=== PATIENT | female | born 1990 | race Caucasian/White ===

== ENCOUNTER 2016-05-12 06:54 | Emergency (ER) | payer BC ==
[~2016-05-12] VITALS: Ht 162.6 cm; Wt 70.1 kg
[~2016-05-12 06:54] MED LIST: AGMUNK; ALBUAER2 INH; AZITTAB PO; CMBIN INH
[2016-05-12 06:59] VITALS: TEMP 36.8; Ht 162.6 cm; Wt 70.1 kg
[2016-05-12] MEDS ORDERED: PROMETHAZINE HCL INJ 25 MG/ML 1 ML VIAL IM STA (07:14)
[2016-05-12] MEDS ORDERED: [UNRECOGNIZED DRUG - CODE] PO (07:24)
[2016-05-12 07:27] VITALS: BP 124/92
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
[2016-05-12 07:48] VITALS: PULSE 68; O2SAT 98
== END 2016-05-12 07:50 | disposition home or self-care (01) ==
LOC: C.EDB 06:55 → C.EDA 07:50
DX: F41.9 Anxiety disorder, unspecified (principal); R11.0 Nausea; Z79.899 Other long term (current) drug therapy

== ENCOUNTER 2016-06-08 22:04 | Emergency (ER) | payer BC ==
[~2016-06-08] VITALS: Ht 160 cm; Wt 67.6 kg
[~2016-06-08 22:04] MED LIST changes: -AGMUNK; -ALBUAER2 INH; -AZITTAB PO; -CMBIN INH; +[UNRECOGNIZED DRUG - CODE] PO
[2016-06-08 22:10] VITALS: TEMP 36.5; Ht 160 cm; Wt 67.6 kg
[2016-06-08] MEDS ORDERED: PROMETHAZINE HCL INJ 25 MG/ML 1 ML VIAL IM STA (22:46)
[2016-06-08] MEDS ORDERED: PHENERGAN 25MG HOMEPACK PO ONE (23:00)
[2016-06-08 23:13] VITALS: BP 126/74; PULSE 62; O2SAT 100
--- NOTE | 2016-06-09 02:51 | EMERGENCY ROOM VISIT NOTE ---
History First contact with patient: 22:37 Chief Complaint: ANXIETY Stated Complaint: ANXIETY, NAUSEA History of Present Illness The patient is a 25 year old female who presents to the Emergency Room with complaints of nausea and anxiety for the past day. Patient states she normally needs Phenergan to help out with her nausea and anxiety. She is currently out of this. Patient denies chest pain, dyspnea, suicidal or homicidal ideations, delusions, vomiting, diarrhea, abdominal pain, fever, chills or any other medical complaints. Patient is in town visiting from [place]. Review of Systems See HPI for pertinent positives & negatives. A total of 10 systems reviewed and were otherwise negative. Past Medical/Surgical History Anxiety Social History Smoking Status: Never Smoker Alcohol Use: occasionally Drug Use: none Marital Status: single Housing Status: lives with roommate Occupation Status: other Current/Historical Medications Scheduled Propranolol HCl (Propranolol HCl), 2.5 ML PO TID Allergies Coded Allergies: No Known Allergies (Unverified , 05/12/16) Physical Exam Vital Signs Date Time Temp Pulse Resp B/P Pulse Ox O2 Delivery O2 Flow Rate FiO2 06/08/16 23:13 62 20 126/74 100 06/08/16 22:10 36.5 62 20 138/87 100 Room Air Pain Rating (0-10): 0 Physical Exam VITALS: Vitals are noted on the nurse's note and reviewed by myself. Vital signs stable. GENERAL: Pleasant female cooperative, in no acute distress, nondiaphoretic, well -developed well-nourished. SKIN: The skin was without rashes, erythema, edema, or bruising. There is no tenting of the skin. Capillary reflex less than 2 seconds. HEAD: Normocephalic atraumatic. EARS: External auditory canals clear, tympanic membranes pearly harley without erythema or effusion bilaterally. EYES: Pupils equal round and reactive to light and accommodation. Conjunctivae without injection, sclerae without icterus. Extraocular movements intact. NOSE: Patent, turbinates without inflammation or discharge. MOUTH: Mucous membranes moist. Pharynx without erythema or exudate. Uvula midline. Airway patent. Tongue does not deviate. NECK: Supple without nuchal rigidity. No lymphadenopathy. No thyromegaly. Cervical spine is nontender. No JVD. HEART: Regular rate and rhythm without murmurs gallops or rubs. LUNGS: Clear to auscultation bilaterally without wheezes, rales or rhonchi. No dullness to percussion. No retractions or accessory muscle use. ABDOMEN: Positive bowel sounds x 4. Normal tympanic percussion. Soft, nontender, without masses or organomegaly. Mckeon sign negative. No guarding or rebound tenderness. MUSCULOSKELETAL: No muscle atrophy, erythema, or edema noted. NEURO: Patient was alert and oriented to person place and time. Normal sensation to light and sharp touch. No focal neurological deficits. Psych: Cooperative Medical Decision & Procedures Medications Administered Medications (Trade) Dose Ordered Sig/Konstantin Route Start Time Stop Time Status Last Admin Dose Admin Promethazine HCl (Phenergan Inj) 25 mg NOW STAT IM 06/08/16 22:46 06/08/16 22:47 DC 06/08/16 23:02 25 MG Promethazine HCl (Phenergan 25MG Home Pack) 1 homepack UD ONCE PO 06/08/16 23:00 06/08/16 23:01 DC 06/08/16 23:02 1 HOMEPACK ED Course Prior records/ancillary studies reviewed and summarized above. Nursing notes reviewed. The patient's history was concerning for anxiety and nausea. Differential diagnosis: Etiologies such as anxiety, metabolic, infection, hypo/hyperglycemia, electrolyte abnormalities, cardiac sources, toxicologic, neurologic, as well as others were entertained. Physical examination: As above. ER treatment provided: Phenergan On reassessment the patient felt better. Diagnostics interpretation by me: Deferred Exam and history seem consistent with anxiety with nausea. Patient felt better after the Phenergan and requested to leave. I felt this is reasonable. She is advised follow-up family care in a few days or here in the ER sooner for exactly , chest pain, vomiting, suicidal or homicidal ideations, worsening signs or symptoms or as needed. Patient was neurovascularly and neurologically intact. She is well-appearing. She had no suicidal or homicidal ideations. By the evaluation outlined above emergent etiologies such as infection, electrolyte abnormalities, cardiac sources, intracerebral event, toxologic, neurologic, abnormalities blood glucose, metabolic, as well as others were deemed relatively unlikely. The pt informed about the findings as listed above. All questions were answered and pleased with the treatment. Return instructions were outlined and the patient was discharged in stable condition. Outpatient prescription management: Phenergan Referral: The patient was referred back to primary care physician for follow-up in 2 to 3 days for a recheck of the current condition. Medical Decision As above Impression Primary Impression: Nausea Additional Impression: Acute anxiety Departure Information Dispostion Home / Self-Care Condition GOOD Forms HOME CARE DOCUMENTATION FORM, IMPORTANT VISIT INFORMATION Patient Instructions [facility] Additional Instructions DO NOT drive, drink alcohol, operate machinery, or perform dangerous activities today. You were given medications in the ER that can affect your ability to safely function or operate a vehicle. Phenergan(promethazine) tablets 25mg: Take one every six hours as needed for nausea. Avoid alcohol, operating machinery or dangerous equipment, working on ladders or roofs, DRIVING, or situations where being under the influence may be dangerous. Ibuprofen(Motrin, Advil) may be used for fever or pain. Use 600mg every six hours as needed. Take with food. Avoid using more than 2400mg in a 24 hour period. Do not use 2400mg per day for more than three consecutive days without physician direction. Prolonged inappropriate use can lead to stomach upset or ulcers. (AND/OR) Acetaminophen(Tylenol) may be used for fever or pain. Use 1000mg every six hours as needed. Avoid using more than 3000mg in a 24 hour period. Rest and drink plenty of fluids as tolerated. Slow sips of water or sports drinks are recommended instead of large amounts all at once. Continue current medications. Return to the ER for persistent anxiety, vomiting, fevers, abdominal pain, chest pains, difficulty breathing, black or bloody stools, worsening of your condition, or as needed. Follow up with your primary physician in 2-3 days for a recheck of your current condition. Problem Qualifiers
[2016-06-09] MEDS ORDERED: ONDA4TAB10 SL (18:04)
== END 2016-06-08 23:16 | disposition home or self-care (01) ==
LOC: C.EDB 22:07 → C.EDA 23:16
DX: F41.9 Anxiety disorder, unspecified (principal); R11.0 Nausea

== ENCOUNTER 2016-06-09 17:43 | Emergency (ER) | payer BC ==
[~2016-06-09] VITALS: Ht 157.5 cm; Wt 66.8 kg
[2016-06-09 17:44] VITALS: TEMP 36.6; Ht 157.5 cm; Wt 66.8 kg
[2016-06-09] MEDS ORDERED: PROMETHAZINE HCL INJ 25 MG/ML 1 ML VIAL IM STA (18:00)
[2016-06-09] MEDS ORDERED: ONDA4TAB10 SL (18:04)
--- NOTE | 2016-06-09 18:07 | EMERGENCY ROOM VISIT NOTE ---
History First contact with patient: 17:52 Chief Complaint: NAUSEA Stated Complaint: NAUSEA Nursing Triage Summary: pt c/o nausea since march "because of anxiety". pt was seen here last night and prescribed promethazine to take but lost prescription. pt verbalizes she called in to see if prescription could be re-printed but was told to check back into the ed. History of Present Illness The patient is a 25 year old female who presents to the Emergency Room with complaints of nausea secondary to her anxiety. The patient was seen here last night for the same thing. She was given a Phenergan injection. The patient states that she was given a prescription for Phenergan but she lost it. Today earlier this morning she felt nauseated and took some Zofran. She states it did help. The patient denies any abdominal pain, change in bowel habits, urinary symptoms or fever. Review of Systems 6 system review was performed and was negative unless stated otherwise in history of present illness. Past Medical/Surgical History Anxiety, nausea Social History Smoking Status: Never Smoker Alcohol Use: occasionally Drug Use: none Marital Status: single Housing Status: lives with roommate Occupation Status: other Current/Historical Medications Scheduled Propranolol HCl (Propranolol HCl), 2.5 ML PO TID Allergies Coded Allergies: No Known Allergies (Unverified , 05/12/16) Physical Exam Vital Signs Date Time Temp Pulse Resp B/P Pulse Ox O2 Delivery O2 Flow Rate FiO2 06/09/16 17:44 36.6 60 18 116/73 99 Room Air Physical Exam GENERAL: 25-year-old white female appears in no acute distress. MENTAL Status: Patient is alert and oriented 3. The patient is very anxious. MOUTH: Mucosa is moist NECK: Supple, no lymphadenopathy noted. No carotid bruits noted. LUNGS: Clear auscultation without wheezes rales or rhonchi. CARDIAC: Regular rate and rhythm without murmur. Pulses is full and equal throughout. BACK: No CVA tenderness noted. ABDOMEN: Positive bowel sounds all 4 quadrants. Soft, nontender to palpation without organomegaly or masses. EXTREMITIES: No cyanosis or edema noted. Medical Decision & Procedures ED Course The patient was evaluated. The patient was given Phenergan 25 mg IM for her nausea. I discussed with the patient giving her a prescription for Zofran rather than Phenergan since she has to attend class and that may make her drowsy. The patient is in agreement. The patient was given a Zofran home pack since the pharmacy is now close. The patient was discharged home in stable condition. Medical Decision The patient presented with her chronic nausea due to her anxiety therefore no additional diagnostic imaging or testing was performed. Impression Primary Impression: Nausea Departure Information Dispostion Home / Self-Care Condition GOOD Prescriptions Ondasetron Odt (ZOFRAN ODT) 4 Mg Tab 4 MG SL Q6H for Nausea, #20 TAB Prov: Kiim Lam, BINA 06/09/16 Referrals No Doctor, Assigned (PCP) Forms HOME CARE DOCUMENTATION FORM, IMPORTANT VISIT INFORMATION Patient Instructions [facility] Additional Instructions Take Zofran as needed for nausea. Any uncontrolled vomiting or diarrhea, return to ER.
[2016-06-09] MEDS ORDERED: ONDANSETRON HOME PACK 4MG OD TAB PO ONE (18:15)
[2016-06-09 18:26] VITALS: BP 111/70; PULSE 78; O2SAT 98
== END 2016-06-09 18:27 | disposition home or self-care (01) ==
LOC: C.EDB 17:44 → C.EDD 18:27
DX: R11.0 Nausea (principal); F41.9 Anxiety disorder, unspecified; Z79.899 Other long term (current) drug therapy

== ENCOUNTER 2016-06-10 00:17 | Emergency (ER) | payer BC ==
[~2016-06-10] VITALS: Ht 157.5 cm; Wt 66.9 kg
[~2016-06-10 00:17] MED LIST changes: +ONDA4TAB10 SL
[2016-06-10 00:21] VITALS: TEMP 36.3; Ht 157.5 cm; Wt 66.9 kg
[2016-06-10] MEDS ORDERED: ALPRAZOLAM 0.5 MG TAB PO STA (00:39)
[2016-06-10] MEDS ORDERED: PROMETHAZINE HCL INJ 25 MG/ML 1 ML VIAL IM STA (01:14)
[2016-06-10 01:39] VITALS: BP 137/81; PULSE 65; O2SAT 98
--- NOTE | 2016-06-10 02:53 | EMERGENCY ROOM VISIT NOTE ---
History First contact with patient: 00:26 Chief Complaint: NAUSEA Stated Complaint: NAUSEA Nursing Triage Summary: pt c/o nausea for past 4-5 hours, took zofran around 2129 with no relief, states she was here earlier for same thing History of Present Illness The patient is a 25 year old female who presents to the Emergency Room with complaints of feeling nauseous due to her anxiety. Patient did not try her Xanax. She states the Zofran did not help. She lost her prescription for the Phenergan. Patient states returns tomorrow to [place]. She is requesting another shot of Phenergan for her nausea and anxiety. Patient denies suicidal or homicidal ideations, chest pain, dyspnea, delusions, hallucinations, fever, chills, vomiting or diarrhea. Patient has a therapist and a psychiatrist back home. Review of Systems See HPI for pertinent positives & negatives. A total of 10 systems reviewed and were otherwise negative. Past Medical/Surgical History Anxiety Social History Smoking Status: Never Smoker Smokeless Tobacco Use: No Alcohol Use: occasionally Drug Use: none Marital Status: single Housing Status: lives with roommate Occupation Status: other Current/Historical Medications Scheduled Ondasetron Odt (Zofran Odt), 4 MG SL Q6H Propranolol HCl (Propranolol HCl), 2.5 ML PO TID Allergies Coded Allergies: No Known Allergies (Unverified , 05/12/16) Physical Exam Vital Signs Date Time Temp Pulse Resp B/P Pulse Ox O2 Delivery O2 Flow Rate FiO2 06/10/16 01:39 65 16 137/81 98 06/10/16 00:21 36.3 61 18 142/88 96 Room Air Pain Rating (0-10): 0 Physical Exam VITALS: Vitals are noted on the nurse's note and reviewed by myself. Vital signs stable. GENERAL: Pleasant anxious-appearing female, in no acute distress, nondiaphoretic , well-developed well-nourished. SKIN: The skin was without rashes, erythema, edema, or bruising. There is no tenting of the skin. Capillary reflex less than 2 seconds. HEAD: Normocephalic atraumatic. EARS: External auditory canals clear, tympanic membranes pearly harley without erythema or effusion bilaterally. EYES: Pupils equal round and reactive to light and accommodation. Conjunctivae without injection, sclerae without icterus. NOSE: Patent, turbinates without inflammation or discharge. MOUTH: Mucous membranes moist. Pharynx without erythema or exudate. Uvula midline. Airway patent. Tongue does not deviate. NECK: Supple without nuchal rigidity. No lymphadenopathy. No thyromegaly. Cervical spine is nontender. No JVD. HEART: Regular rate and rhythm without murmurs gallops or rubs. LUNGS: Clear to auscultation bilaterally without wheezes, rales or rhonchi. No dullness to percussion. No retractions or accessory muscle use. ABDOMEN: Positive bowel sounds x 4. Normal tympanic percussion. Soft, nontender, without masses or organomegaly. Mckeon sign negative. No guarding or rebound tenderness. MUSCULOSKELETAL: No muscle atrophy, erythema, or edema noted. NEURO: Patient was alert and oriented to person place and time. Normal sensation to light and sharp touch. No focal neurological deficits. Psych: Pleasant cooperative anxious-appearing Medical Decision & Procedures Medications Administered Medications (Trade) Dose Ordered Sig/Konstantin Route Start Time Stop Time Status Last Admin Dose Admin Alprazolam (Xanax Tab) 0.5 mg NOW STAT PO 06/10/16 00:39 06/10/16 00:40 DC 06/10/16 00:48 0.5 MG Promethazine HCl (Phenergan Inj) 25 mg NOW STAT IM 06/10/16 01:14 06/10/16 01:16 DC 06/10/16 01:27 25 MG ED Course Prior records/ancillary studies reviewed. Triage Nursing notes reviewed. The patient's history was concerning for anxiety Differential diagnosis: Etiologies such as anxiety, mood disorder, infection, hypoglycemia, electrolyte abnormalities, cardiac sources, intracerebral event, toxicologic, neurologic, as well as others were entertained. Physical examination: The physical examination was performed as above and was completely benign. No emergent medical pathologies were noted. ER treatment provided: Xanax, Phenergan On reassessment the patient felt better. Diagnostic interpretation by me: No diagnostic studies were performed based upon the history and physical examination. Consultation: A consultation was placed with mental health. The patient was evaluated by mental health in the emergency department and they felt admission was not warranted. They recommend that the patient follow up with her therapist within the [facility] to [place]. Exam and history seem consistent with anxiety. This is the patient's third visit today so I opted to have pain and help evaluate the patient. Patient was agreeable to this. She was strongly encouraged to see her therapist when she returns tomorrow and to resume taking an anti-anxiety medication. She was advised to try her Xanax as needed but no alcohol or driving on this medication. She is advised to return to the ER mainly for anxiety, suicidal or homicidal ideations, delusions, hallucinations, worsening signs or symptoms or as needed. By the evaluation outlined above emergent etiologies such as infection, hypoglycemia, electrolyte abnormalities, cardiac sources, intracerebral event, toxicologic, neurologic,as well as others were deemed relatively unlikely. It appears the patient is dealing with a psychiatric disturbance. The pt informed about the findings as listed above. All questions were answered and pleased with the treatment. Return instructions were outlined and the patient was discharged in stable condition. Referral: The patient was referred back to their primary care physician and therapist for follow-up in 2 to 3 days for a recheck of the current condition. Medical Decision As above Impression Primary Impression: Acute anxiety Additional Impression: Nausea Departure Information Dispostion Home / Self-Care Condition GOOD Referrals Marquise Glover DO (PCP) Forms HOME CARE DOCUMENTATION FORM, IMPORTANT VISIT INFORMATION Patient Instructions Anxiety Body Response, My [facility] [employer] Additional Instructions Try your Xanax for your anxiety. No alcohol or driving on this medication. Follow up with your therapist and psychiatrist when he returns to [place] this week. Rest. Decrease stress. Try yoga and/or Pilates to decrease your stress and anxiety. Return to ER sooner for anxiety, thoughts of hurting yourself, delusions, hallucinations, worsening signs or symptoms or as needed. Problem Qualifiers
== END 2016-06-10 01:42 | disposition home or self-care (01) ==
LOC: C.EDB 00:18
DX: R41.9 Unspecified symptoms and signs involving cognitive functions and awareness (principal); R11.0 Nausea

== ENCOUNTER 2016-07-08 00:53 | Emergency (ER) | payer BC ==
[~2016-07-08] VITALS: Ht 160 cm; Wt 66.8 kg
[2016-07-08 00:58] VITALS: TEMP 36.4; Ht 160 cm; Wt 66.8 kg
[2016-07-08] MEDS ORDERED: ALPRAZOLAM 0.5 MG TAB PO STA (01:25)
--- NOTE | 2016-07-08 01:25 | EMERGENCY ROOM VISIT NOTE ---
History Report prepared by Allyssa: Pete Jeff Under the Supervision of: Dr. Estrella Mtz D.O. First contact with patient: 01:03 Chief Complaint: ANXIETY Stated Complaint: ANXIETY History of Present Illness The patient is a 25 year old female who presents to the Emergency Room with complaints of improving anxiety that occurred earlier today. The patient has a history of anxiety for which she has been to the ED multiple times. The patient' s father states that her episode of anxiety tonight was alarming, which the patient describes as a panic attack. The patient becomes fixated on the idea that she has "the stomach flu." The patient describes feeling extremely nauseous , and she notes that she has a significant fear of vomiting. She is only minimally nauseous at this time. The patient had one loose bowel movement tonight which may have contributed to the attack. She is also worried because her brother recently had GI symptoms and she is afraid that he was contagious. The patient's anxiety improved tonight after taking 0.5 mg Xanax. She has been taking up to two 0.5 mg Xanax per day. The patient sees a therapist and is undergoing cognitive behavioral therapy. She started Zoloft 25 mg two weeks ago , which has helped. The dose will be increased to 50 mg in two days. Tonight she had chicken noodle soup and salad for dinner which has not caused her any problems. She has been dealing with anxiety since being diagnosed with mono approximately 8 months ago, as per father. 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 She notes that she was going to the ED and urgent care in [place] frequently. She graduated from [employer] yesterday which is also contributing to anxiety. She scratches herself during her panic attacks, which is not intended to do self harm or draw blood. The patient denies fevers, chills , sore throat, or coughing. Source of History: patient Onset: today Position: other (psyche) Quality: other (anxiety) Timing: resolved Modifying Factors (Relieving): other (Xanax) Associated Symptoms: No chills, No cough, No fevers, No sorethroat Review of Systems See HPI for pertinent positives & negatives. A total of 10 systems reviewed and were otherwise negative. Past Medical & Surgical Medical Problems: (1) Anxiety Family History No pertinent family history Social History Smoking Status: Never Smoker Alcohol Use: occasionally Drug Use: none Marital Status: single Housing Status: lives with roommate Current/Historical Medications Scheduled Propranolol HCl (Propranolol HCl), 2.5 ML PO UD Sertraline (Zoloft), 50 MG PO DAILY Scheduled PRN Alprazolam (Xanax), 1 MG PO TID PRN for Anxiety Allergies Coded Allergies: No Known Allergies (Unverified , 07/08/16) Physical Exam Vital Signs Date Time Temp Pulse Resp B/P Pulse Ox O2 Delivery O2 Flow Rate FiO2 07/08/16 02:23 70 18 124/87 100 07/08/16 00:58 36.4 68 18 131/88 99 Room Air Physical Exam HEENT: Head - normocephalic and atraumatic Pupils are equal, round, and reactive to light. Extraocular eye muscles are intact, and sclera are anicteric. Nose - moist nasal mucosa without discharge. Mouth - moist buccal mucosa. Oropharynx is nonerythematous and there is no tonsillar exudate or edema noted. Neck: Supple; no JVD, nuchal rigidity, cervical lymphadenopathy, or auscultated bruits. Heart: Regular rate and rhythm. There is a normal S1 and S2. Lungs: Clear to auscultation bilaterally with no wheezes, rales, or rhonchi. Abdomen: Soft, completely nontender, nondistended, with good bowel sounds. There are no palpable pulsatile masses or hepatosplenomegaly. There is no guarding, rigidity, or rebound noted. Extremities: No evidence of cyanosis, clubbing, or edema. There are easily palpable peripheral pulses. Skin: warm and dry with good turgor and no rashes. Psych: Hyperverbal, extremely anxious, scratching her arms and abdomen during exam. Medical Decision & Procedures Medications Administered Medications (Trade) Dose Ordered Sig/Konstantin Route Start Time Stop Time Status Last Admin Dose Admin Alprazolam (Xanax Tab) 0.5 mg NOW STAT PO 07/08/16 01:25 07/08/16 01:26 DC 07/08/16 01:39 0.5 MG Procedure Medications administered include Xanax PO. ED Course 0110: Past medical records reviewed. The patient was here multiple times in June. The patient was evaluated in room B9. A complete history and physical exam was performed. 0125: Xanax 0.5 mg PO. 0158: The patient is feeling much better. Medical Decision The patient is a 25 year old female who presents to the ED with anxiety. Differential diagnosis includes medication side effect, anxiety, gastritis, food borne illness. This is a 25-year-old female patient who presents to the emergency department with feelings of nausea and anxiety. The patient has had severe anxiety episodes since an episode of mononucleosis. The patient is closely followed by psychiatry. She is fixated on having the GI flu. She is extremely fearful of vomiting. She explained that she would feel much more comfortable 5 exam and her and told her that she does not have the GI flu. She explains that she does feel more relaxed after taking her own Xanax at home. I gave her some additional Xanax here which did help with the anxiety. The patient is currently in the process of escalating her dose of Zoloft. I've asked her to follow up closely with her therapist. Impression Primary Impression: Acute anxiety Scribe Attestation The scribe's documentation has been prepared under my direction and personally reviewed by me in its entirety. I confirm that the note above accurately reflects all work, treatment, procedures, and medical decision making performed by me. Departure Information Dispostion Home / Self-Care Referrals No Doctor, Assigned (PCP) Forms HOME CARE DOCUMENTATION FORM, IMPORTANT VISIT INFORMATION Patient Instructions Anxiety Body Response, Anxiety Disorder, My [facility] Additional Instructions You may continue to increase the zoloft dose and take xanax as directed.
[2016-07-08] MEDS ORDERED: SERT50TA PO (02:07)
[2016-07-08] MEDS ORDERED: ALPR-411 PO (02:07)
[2016-07-08 02:23] VITALS: BP 124/87; PULSE 70; O2SAT 100
== END 2016-07-08 02:24 | disposition home or self-care (01) ==
LOC: C.EDB 00:53
DX: F41.9 Anxiety disorder, unspecified (principal)

== ENCOUNTER 2016-07-19 22:57 | Emergency (ER) | payer BC ==
[~2016-07-19] VITALS: Ht 160 cm; Wt 67.8 kg
[~2016-07-19 22:57] MED LIST changes: +ALPR-411 PO; -ONDA4TAB10 SL; +SERT50TA PO
[2016-07-19 23:00] VITALS: BP 122/64; PULSE 64; TEMP 36.8; O2SAT 97; Ht 160 cm; Wt 67.8 kg
--- NOTE | 2016-07-19 23:16 | EMERGENCY ROOM VISIT NOTE ---
History Report prepared by Allyssa: Pete Jeff Under the Supervision of: Dr. Stu Morgan D.O. First contact with patient: 23:04 Chief Complaint: ANXIETY Stated Complaint: ANXIETY,PANIC History of Present Illness The patient is a 25 year old female who presents to the Emergency Room with complaints of persistent anxiety that started earlier tonight. The patient has a history of anxiety for which she takes Zoloft and Xanax. She started Zoloft three weeks ago, and her dose was increased to 50 mg three days ago. The patient 's current episode of anxiety was triggered by family-related stress. The patient's family notes that earlier she was screaming and kicking things around the house. She has otherwise been doing better lately since starting the Zoloft. She notes that she no longer has been receiving Phenergan shots. Her anxiety is typically related to being afraid of vomiting and "having the stomach flu." She is not currently nauseous and denies vomiting, but she is afraid of becoming nauseous. She had a dose of Xanax around 1800 tonight. The patient notes that she has had some diarrhea lately. The patient notes that her menstrual period started today. The patient follows up with a therapist. Source of History: patient Onset: tonight Position: other (global) Quality: other (anxiety) Timing: other (persistent) Modifying Factors (Worsening): other (family stress) Modifying Factors (Relieving): other (Xanax) Associated Symptoms: + diarrhea, No nausea, No vomiting Review of Systems See HPI for pertinent positives and negatives. A total of ten systems were reviewed and were otherwise negative. Past Medical & Surgical Medical Problems: (1) Anxiety Family History No pertinent family history Social History Smoking Status: Never Smoker Alcohol Use: occasionally Drug Use: none Marital Status: single Housing Status: lives with roommate Current/Historical Medications Scheduled Propranolol HCl (Propranolol HCl), 2.5 ML PO UD Sertraline (Zoloft), 50 MG PO DAILY Scheduled PRN Alprazolam (Xanax), 1 MG PO TID PRN for Anxiety Allergies Coded Allergies: No Known Allergies (Unverified , 07/08/16) Physical Exam Vital Signs Date Time Temp Pulse Resp B/P Pulse Ox O2 Delivery O2 Flow Rate FiO2 07/19/16 23:00 36.8 64 18 122/64 97 Room Air Physical Exam GENERAL: Awake, alert, anxious appearing, scratching all over body. HENT: Normocephalic, atraumatic. Oropharynx unremarkable. EYES: Normal conjunctiva. Sclera non-icteric. NECK: Supple. No nuchal rigidity. FROM. No JVD. RESPIRATORY: Clear to auscultation. CARDIAC: Regular rate, normal rhythm. Extremities warm and well perfused. Pulses equal. ABDOMEN: Soft, non-distended. No tenderness to palpation. No rebound or guarding. No masses. RECTAL: Deferred. MUSCULOSKELETAL: Chest examination reveals no tenderness. The back is symmetrical on inspection without obvious abnormality. There is no CVA tenderness to palpation. No joint edema. LOWER EXTREMITIES: Calves are equal size bilaterally and non-tender. No edema. No discoloration. NEURO: Normal sensorium. No sensory or motor deficits noted. SKIN: No rash or jaundice noted. PSYCH: Anxious. Medical Decision & Procedures ED Course 2305: The patient was evaluated in room A2. A complete history and physical exam was performed. 2320: Discussed results and discharge instructions: She verbalized understanding and agreement. The patient is ready for discharge. Medical Decision Differential diagnosis includes anxiety, behavioral problems, social service problems. Resting in no distress; will follow up [place] Drug Monitoring Program Search Results: patient reviewed within database Impression Primary Impression: Acute anxiety Scribe Attestation The scribe's documentation has been prepared under my direction and personally reviewed by me in its entirety. I confirm that the note above accurately reflects all work, treatment, procedures, and medical decision making performed by me. Departure Information Dispostion Home / Self-Care Referrals No Doctor, Assigned (PCP) Forms HOME CARE DOCUMENTATION FORM, IMPORTANT VISIT INFORMATION Patient Instructions Anxiety Disorder, My [facility]
== END 2016-07-19 23:30 | disposition home or self-care (01) ==
LOC: C.EDB 22:58 → C.EDA 23:30
DX: F41.9 Anxiety disorder, unspecified (principal)

== ENCOUNTER 2016-08-11 23:30 | Emergency (ER) | payer BC ==
[~2016-08-11] VITALS: Ht 160 cm; Wt 66.6 kg
[2016-08-11 23:35] VITALS: TEMP 36.6; Ht 160 cm; Wt 66.6 kg
[2016-08-11] MEDS ORDERED: ALPRAZOLAM 0.5 MG TAB PO STA (23:50)
[2016-08-12 00:02] VITALS: BP 102/73; PULSE 73; O2SAT 93
--- NOTE | 2016-08-12 02:04 | EMERGENCY ROOM VISIT NOTE ---
History Report prepared by Allyssa: Jessica Duffy Under the Supervision of: Dr. Gary Hinkle D.O. First contact with patient: 23:37 Chief Complaint: ANXIETY Stated Complaint: ANXIETY History of Present Illness The patient is a 25 year old female who presents to the Emergency Room with complaints of persistent anxiety starting this morning. She has a history of anxiety. Her symptoms are consistent with her typical anxiety. She also complains of abdominal discomfort starting this morning. She often gets abdominal pain with her anxiety. She denies any chest pain, SOB, vaginal bleeding or discharge, dysuria, nausea, or vomiting. She notes that she is afraid that she will become nauseous which makes her more anxious. She would like reassurance from a doctor that nothing is wrong. She has not been sleeping well lately. Her last menstrual period was 2 weeks ago. Her last bowel movement was today. She still has her gallbladder and appendix. She has run out of her anxiety medications. She normally takes 0.5 mg of Xanax. Source of History: patient Onset: this morning Position: other (global) Quality: other (anxiety) Timing: other (persistent) Associated Symptoms: + abdominal pain, No chest pain, No SOB, No nausea, No vomiting, No urinary symptoms Note: Pt denies vaginal bleeding or discharge. Review of Systems See HPI for pertinent positives & negatives. A total of 10 systems reviewed and were otherwise negative. Past Medical & Surgical Medical Problems: (1) Anxiety Family History No pertinent family history Social History Smoking Status: Never Smoker Alcohol Use: occasionally Drug Use: none Marital Status: single Housing Status: lives with roommate Current/Historical Medications Scheduled Propranolol HCl (Propranolol HCl), 2.5 ML PO UD Sertraline (Zoloft), 50 MG PO DAILY Scheduled PRN Alprazolam (Xanax), 1 MG PO TID PRN for Anxiety Allergies Coded Allergies: No Known Allergies (Unverified , 08/11/16) Physical Exam Vital Signs Date Time Temp Pulse Resp B/P (MAP) Pulse Ox O2 Delivery O2 Flow Rate FiO2 08/12/16 00:02 73 16 102/73 93 08/11/16 23:35 36.6 56 16 155/78 99 Room Air Physical Exam GENERAL: sitting up in bed, anxious, disheveled, no acute distress, nontoxic EYE EXAM: normal conjunctiva OROPHARYNX: no exudate, no erythema, lips, buccal mucosa, and tongue normal and mucous membranes are moist NECK: supple, no nuchal rigidity, no adenopathy, non-tender LUNGS: Clear to auscultation. Normal chest wall mechanics HEART: no murmurs, S1 normal and S2 normal ABDOMEN: abdomen soft, non-tender, normo-active bowel sounds, no masses, no rebound or guarding. BACK: Back is symmetrical on inspection and there is no deformity, no midline tenderness, no CVA tenderness. SKIN: no rashes and no bruising UPPER EXTREMITIES: upper extremities are grossly normal. LOWER EXTREMITIES: No pitting edema. Calves equal bilaterally. NEURO EXAM: Normal sensorium, cranial nerves II-XII grossly intact, normal speech, no gross weakness of arms, no gross weakness of legs. Medical Decision & Procedures Medications Administered Medications (Trade) Dose Ordered Sig/Konstantin Route Start Time Stop Time Status Last Admin Dose Admin Alprazolam (Xanax Tab) 0.5 mg NOW STAT PO 08/11/16 23:50 08/11/16 23:51 DC 08/12/16 00:02 0.5 MG ED Course ED COURSE: Vital signs were reviewed and showed hypertension. The patients medical record was reviewed The above diagnostic studies were performed and reviewed. ED treatments and interventions as stated above. 2342: The patient was evaluated in room B9. A complete history and physical examination was performed. 2350: Xanax Tab 0.5 mg PO. 2358: Upon reevaluation, the patient is resting comfortably.I discussed my findings with the patient and she understands and agrees with the treatment plan. Based on the patients age, coexisting illnesses, exam and lab findings the decision to treat as an outpatient was made. The patient remained stable while under my care. The patient appeared well at the time of discharge. Medical Decision Differential diagnoses includes but is not limited to gastritis, peptic ulcer disease, GERD, gallbladder disease, pancreatitis, small bowel obstruction, acute coronary syndrome, pericarditis, ischemic bowel, irritable bowel disease, irritable bowel syndrome, appendicitis, diverticulitis, malignancy, hernia, urinary tract infection, torsion, /ectopic (if female), perforation, trauma, infectious. Medication Reconciliation: I attest that I have personally reviewed the patient' s current medication list. Blood pressure screening: Patient was found to have an elevated blood pressure and was referred to their primary doctor for recheck and further treatment. Patient is a 25-year-old female who presents the ER for anxiety. She notes that she has been having trouble sleeping recently and has mild discomfort in her epigastric region. She has that she normally gets this with her anxiety as she is always afraid of being nauseous and vomiting. She came in today because she is out of her Xanax. Her exam is completely benign. I did recommend blood work but she declined. Recommended UA and which she also declined. She just wanted one pill of her Xanax to get her through tonight so she'll follow-up with her PCP tomorrow. I did feel this is reasonable. She was discharged follow-up with her primary care doctor. No thoughts of self-harm. Discussed with Pt concerning signs and symptoms to watch out for. Pt was instructed to follow up with their PCP and discussed with the patient their option to return to the ED at anytime for persistent or worsening symptoms. The appropriate anticipatory guidance and out-patient management, including indications for return to the emergency department, were explained at length to the patient and understood. Impression Primary Impression: Anxiety Additional Impression: Abdominal pain Scribe Attestation The scribe's documentation has been prepared under my direction and personally reviewed by me in its entirety. I confirm that the note above accurately reflects all work, treatment, procedures, and medical decision making performed by me. Departure Information Dispostion Home / Self-Care Referrals No Doctor, Assigned (PCP) Forms HOME CARE DOCUMENTATION FORM, IMPORTANT VISIT INFORMATION Patient Instructions Abdominal Pain - [facility], Anxiety Body Response, My [facility] Additional Instructions Please follow up with your primary care doctor or if you are a student [facility] with in the next 24 hours. Any worsening of your symptoms, please return to the ED immediately. This includes chest pain, shortness breath, worsening abdominal pain, fevers greater than 100.4, persistent nausea vomiting or any other concerning signs or symptoms from your standpoint. Please take the Xanax when you get home. Please do not drive, drink alcohol or operate heavy machinery for the next 12 hours following taking this medication. Your blood pressure was slightly elevated. Please follow-up with your primary care doctor in regards to this. Problem Qualifiers Additional Impression: Abdominal pain Abdominal location: generalized Qualified Codes: R10.84 - Generalized abdominal pain
== END 2016-08-12 00:04 | disposition home or self-care (01) ==
LOC: C.EDB 23:31
DX: F41.9 Anxiety disorder, unspecified (principal); R10.84 Generalized abdominal pain